=== PATIENT | male | born 1970 | race Caucasian/White ===

== ENCOUNTER 2018-12-02 02:12 | Emergency (ER) | payer MEDICAID, OTHER, SELFPAY ==
--- NOTE | 2018-12-02 02:26 | NUR ---
PT NOT IN LOBBY
--- NOTE | 2018-12-02 02:43 | NUR ---
PT [id number]
--- NOTE | 2018-12-02 02:56 | NUR ---
ATTEMPTED TO CALL PT FROM LOBBY TO TRIAGE. ATTEMPT UNSUCCESSFUL; LOBBY EMPTY
== END 2018-12-02 03:02 | disposition left against medical advice (07) ==
LOC: ED 02:56
DX: N50.89 Other specified disorders of the male genital organs (principal); Z53.21 Procedure and treatment not carried out due to patient leaving prior to being seen by health care provider